=== PATIENT | female | born 1960 | race Hispanic/Latino ===

== ENCOUNTER 2022-06-25 09:00 | Outpatient (RCR) | payer OTHER | END 2022-06-29 | LOC: PT 09:00 | PROVIDERS: ATTEND Podiatrist Foot & Ankle Surgery | DX: M76.71 Peroneal tendinitis, right leg (principal); G57.81 Other specified mononeuropathies of right lower limb; M62.81 Muscle weakness (generalized) ==

== ENCOUNTER 2022-07-07 08:44 | Outpatient (RCR) | payer OTHER ==
[2022-07-12] MEDS ORDERED: AMLODIPINE BESYL5 MG PO (11:03)
[2022-07-12] MEDS ORDERED: IBUPROFEN800 MG PO (11:03)
[2022-07-12] MEDS ORDERED: HYDROCHLOROTHIA25 MG PO (11:03)
[2022-07-12] MEDS ORDERED: CRESTOR10 MG PO (11:03)
[2022-07-12] MEDS ORDERED: VIT D PO (11:04)
== END 2022-07-30 ==
LOC: PT 08:44
PROVIDERS: ATTEND Podiatrist Foot & Ankle Surgery
DX: M76.72 Peroneal tendinitis, left leg (principal)

== ENCOUNTER → 2022-07-14 | Outpatient (CLI) | payer MEDICARE ==
[~2022-07-14] MED LIST: AMLODIPINE BESYL5 MG PO; CRESTOR10 MG PO; DIATRIZOATE MEGL/DIATRIZOA SOD 30 ML BTL PO ONE; HYDROCHLOROTHIA25 MG PO; IBUPROFEN800 MG PO; IOPAMIDOL 370 MG/ML 100 ML INFUS..BTL INJ ONE; VIT D PO
[2022-07-14 09:22] LABS: CREATININE, SERUM 0.75 mg/dL (0.57-1.11)
== END ==
LOC: CT 08:32
PROVIDERS: ATTEND Nurse Practitioner
DX: R10.9 Unspecified abdominal pain (principal)
CPT/HCPCS: 36415; 74177; 82565; 84520; Q9963; Q9967

== ENCOUNTER → 2022-07-16 | Day surgery (SDC) | payer MEDICARE, OTHER ==
[~2022-07-16] MED LIST changes: -DIATRIZOATE MEGL/DIATRIZOA SOD 30 ML BTL PO ONE; +FENTANYL CITRATE/PF 100MCG/2 ML INJ ONE; +HYOSCYAMINE SULFATE 0.5 MG/ML INJ ONE; -IOPAMIDOL 370 MG/ML 100 ML INFUS..BTL INJ ONE; +LIDOCAINE HCL 2% LOCAL INJ 5 ML SDV VIAL INJ ONE; +PROPOFOL IV EMULSION 10 MG/ML 20 ML VIAL ONE; +PROPOFOL IV EMULSION 50 ML IV ONE
[2022-07-16 15:35] VITALS: BP 137/85
== END | disposition home or self-care (01) ==
LOC: OR 11:00
PROVIDERS: ATTEND Internal Medicine Gastroenterology
DX: K59.09 Other constipation (principal); D12.3 Benign neoplasm of transverse colon; K52.9 Noninfective gastroenteritis and colitis, unspecified; K29.70 Gastritis, unspecified, without bleeding; K31.A11 Gastric intestinal metaplasia without dysplasia, involving the antrum; K63.3 Ulcer of intestine; K31.89 Other diseases of stomach and duodenum; K21.9 Gastro-esophageal reflux disease without esophagitis; K57.30 Diverticulosis of large intestine without perforation or abscess without bleeding; K64.8 Other hemorrhoids; Z71.3 Dietary counseling and surveillance; D64.9 Anemia, unspecified; E66.01 Morbid (severe) obesity due to excess calories; I10 Essential (primary) hypertension; Z71.89 Other specified counseling; E78.00 Pure hypercholesterolemia, unspecified; M19.90 Unspecified osteoarthritis, unspecified site; Z01.810 Encounter for preprocedural cardiovascular examination; Z79.899 Other long term (current) drug therapy; Z79.1 Long term (current) use of non-steroidal anti-inflammatories (NSAID); Z68.36 Body mass index [BMI] 36.0-36.9, adult
CPT/HCPCS: 43239; 45380; 45385; 93005; C9113; J1980; J2001; J2704 ×2; J3010; 45378

== ENCOUNTER 2022-08-02 07:26 | Outpatient (RCR) | payer MEDICARE ==
[~2022-08-02 07:26] MED LIST changes: -FENTANYL CITRATE/PF 100MCG/2 ML INJ ONE; -HYOSCYAMINE SULFATE 0.5 MG/ML INJ ONE; -LIDOCAINE HCL 2% LOCAL INJ 5 ML SDV VIAL INJ ONE; -PROPOFOL IV EMULSION 10 MG/ML 20 ML VIAL ONE; -PROPOFOL IV EMULSION 50 ML IV ONE
[2022-08-11] MEDS ORDERED: PANTOPRAZOLE SO40 MG PO (10:50)
[2022-08-11] MEDS ORDERED: METRONIDAZOLE250 MG PO (10:51)
[2022-08-11] MEDS ORDERED: MYRBETRIQ25 MG PO (10:53)
[2022-08-11] MEDS ORDERED: HYDROCHLOROTH12.5 MG PO (10:54)
== END 2022-08-29 ==
LOC: PT 07:26
PROVIDERS: ATTEND Podiatrist Foot & Ankle Surgery
DX: M76.72 Peroneal tendinitis, left leg (principal)